=== PATIENT | female | born 1955 | race African-American/Black ===

== ENCOUNTER 2020-12-16 17:04 | Inpatient (IN) | payer MEDICARE, MEDICAID ==
[~2020-12-16] VITALS: Ht 167.6 cm; Wt 93.4 kg
[2020-12-16 17:37] LABS: BASOPHILS % 0.7 % (0.0-2.0); EOSINOPHILS % 2.9 % (0.0-5.0); HEMATOCRIT. 34.5 % (36.0-48.0); HEMOGLOBIN. 11.5 g/dL (12.0-16.0); LYMPHOCYTES % 14.2 % (20.0-50.0); MEAN CORPUSCULAR HEMOGLOBIN 26.5 pg (28.0-32.0); MEAN CORPUSCULAR VOLUME 79.8 fL (81.0-99.0); MEAN PLATELET VOLUME 6.8 fl (7.4-10.4); MONOCYTES % 8.2 % (2.0-8.0); PLATELET 543 x1000/uL (130-400); RED BLOOD CELL COUNT 4.32 mill/uL (4.2-5.4); RED CELL DISTRIBUTION WIDTH 14.1 % (11.6-14.6)
[2020-12-16 17:44] LABS: CHLORIDE 104 mEq/L (98-107)
[2020-12-16 17:48] LABS: ETHANOL BLOOD < 10 mg/dL; PROTHROMBIN TIME 10.4 sec (9.6-11.0)
[2020-12-16 17:50] LABS: LDL CHOLESTEROL 80 mg/dL (5-100)
[2020-12-16] MEDS ORDERED: LEVETIRACETAM 500MG PREMIX 100 ML IV ONE (18:00)
[2020-12-16 18:09] LABS: CLARITY URINE CLEAR (CLEAR); COLOR URINE YELLOW (YELLOW); KETONES URINE NEGATIVE (NEGATIVE); LEUKOCYTE ESTERASE URINE 1+ (NEGATIVE); NITRITE URINE NEGATIVE (NEGATIVE); OCCULT BLOOD URINE TRACE (NEGATIVE); PH URINE 5.5 (4.5-8.0); PROTEIN URINE NEGATIVE (NEGATIVE); SPECIFIC GRAVITY URINE 1.045 (1.005-1.030); UROBILINOGEN URINE 0.2 E.U./dL (0.2-1.0)
[2020-12-16 18:27] LABS: METHADONE URINE SCREEN NEGATIVE (NEGATIVE); OPIATES URINE SCREEN NEGATIVE (NEGATIVE)
[2020-12-16 18:28] LABS: *BARBITURATES SCREEN URINE NEGATIVE (NEGATIVE); *COCAINE SCREEN URINE NEGATIVE (NEGATIVE); CANNABINOID URINE SCREEN NEGATIVE (NEGATIVE); PHENCYCLIDINE URINE SCREEN NEGATIVE (NEGATIVE)
[2020-12-16 18:30] LABS: *AMPHETAMINES SCREEN URINE NEGATIVE (NEGATIVE); *BENZODIAZEPINES SCREEN URINE NEGATIVE (NEGATIVE)
[2020-12-16] MEDS ORDERED: IOHEXOL 350 MG/ML 200ML INFUS..BTL IV ONE (18:41)
[2020-12-16] MEDS ORDERED: DEXT 5%/LACTATED RINGERS 1,000 ML IV SCH (19:45)
[2020-12-16] MEDS ORDERED: DEXTROSE 50% WATER 50ML SYRINGE IV PRN (19:45)
[2020-12-16] MEDS ORDERED: MAGNESIUM/ALUMINUM HYDROXIDE/SIMETHICONE 30ML UDC PO PRN (19:45)
[2020-12-16] MEDS ORDERED: NITROGLYCERIN 0.4MG TABLET SL SL PRN (19:45)
[2020-12-16] MEDS ORDERED: NICARDIPINE 50 MG in SODIUM CHLORIDE 0.9% 230 ML IV PRN (19:45)
[2020-12-16] MEDS ORDERED: SODIUM CHLORIDE 0.9% 1000ML BAG (SEPSIS BOLUS) IV ONE (19:45)
[2020-12-16] MEDS ORDERED: IPRATROPIUM/ALBUTEROL 0.5-3(2.5)MG/3ML NEB NEB PRN (19:45)
[2020-12-16] MEDS ORDERED: MORPHINE SULFATE 2 MG/ML CPJ (NOT FOR IM USE) IV PRN (20:00)
[2020-12-16] MEDS ORDERED: NICARDIPINE 100 MG in SODIUM CHLORIDE 0.9% 60 ML IV PRN (20:00)
[2020-12-16] MEDS ORDERED: CEFTRIAXONE 1 G PREMIX 50 ML IV SCH (20:00)
[2020-12-16] MEDS ORDERED: LEVETIRACETAM 500MG PREMIX 100 ML IV SCH (20:00)
[2020-12-16 20:17] LABS: FOLIC ACID (FOLATE) SERUM >20 ng/mL ng/mL (>5.38)
[2020-12-16 20:27] LABS: VITAMIN B12 SERUM 1361 pg/mL (211-911)
[2020-12-16] MEDS: BLOOD SUGAR DIAGNOSTIC STRIP TEST SCH (22:35)
[2020-12-16] MEDS: INSULIN LISPRO 100 UNITS/ML SUBCUT SCH (23:52)
[2020-12-17] VITALS (66 sets, daily range): BP systolic 97–146; BP diastolic 48–108
[2020-12-17 00:10] LABS: CREATINE KINASE 121 IU/L (26-192)
[2020-12-17 00:11] LABS: CREATINE KINASE MB FRACTION < 1.0 ng/mL (0.5-3.6)
[2020-12-17] MEDS: NICARDIPINE 100 MG in SODIUM CHLORIDE 0.9% 60 ML IV PRN ×2 (01:02→17:30)
[2020-12-17] MEDS ORDERED: ATOR20TA65 PO (04:59)
[2020-12-17] MEDS ORDERED: AMLO5TAB88 PO (04:59)
[2020-12-17] MEDS ORDERED: ACET325T52 PO (04:59)
[2020-12-17] MEDS ORDERED: LEVE10006 PO (04:59)
[2020-12-17] MEDS ORDERED: METF-415 PO (04:59)
[2020-12-17] MEDS ORDERED: TRAZ-251 PO (04:59)
[2020-12-17] MEDS ORDERED: ESCI5TAB16 PO (04:59)
[2020-12-17] MEDS ORDERED: BLOO-1113 XX (04:59)
[2020-12-17] MEDS: DEXT 5%/LACTATED RINGERS 1,000 ML IV SCH ×2 (05:34→17:10)
[2020-12-17] MEDS ORDERED: THROMBIN (BOVINE) 5000 UNITS/VIAL TOP ONE (06:48)
[2020-12-17] MEDS ORDERED: BACITRACIN 15GM TUBE TOP ONE (06:48)
[2020-12-17] MEDS ORDERED: BACITRACIN 50,000 UNITS/VIAL ONE (06:49)
[2020-12-17] MEDS: BLOOD SUGAR DIAGNOSTIC STRIP TEST SCH ×5 (07:30→21:00)
[2020-12-17] MEDS ORDERED: NEOSTIGMINE METHYLSULFATE 1MG/ML 10 ML VIAL ONE (07:44)
[2020-12-17] MEDS ORDERED: FENTANYL CITRATE/PF 50MCG/ML 2ML VIAL ONE (07:44)
[2020-12-17] MEDS ORDERED: ROCURONIUM BROMIDE 10MG/ML VIAL 5ML IV ONE (07:44)
[2020-12-17] MEDS ORDERED: GLYCOPYRROLATE 0.2 MG/ML 2ML VIAL ONE ×2 (07:45→09:42)
[2020-12-17] MEDS ORDERED: MIDAZOLAM HCL 2 MG/2 ML VIAL ONE (07:45)
[2020-12-17] MEDS ORDERED: PROPOFOL 200MG/20ML VIAL IV ONE (07:45)
[2020-12-17] MEDS: INSULIN LISPRO 100 UNITS/ML SUBCUT SCH ×4 (08:00→21:59)
[2020-12-17] MEDS ORDERED: HYDROMORPHONE HCL/PF 2MG/ML CPJ IV PRN (08:30)
[2020-12-17] MEDS ORDERED: LABETALOL 5MG/ML SYR 20 MG/4 ML SYRINGE IV PRN (08:30)
[2020-12-17] MEDS ORDERED: ONDANSETRON HCL 4MG/2ML INJ IV PRN (08:30)
[2020-12-17] MEDS ORDERED: MEPERIDINE HCL/PF 25MG/ML CPJ IV PRN (08:30)
[2020-12-17] MEDS ORDERED: LEVETIRACETAM 500MG PREMIX 100 ML IV SCH (09:00)
[2020-12-17] MEDS ORDERED: DEXAMETHASONE 4MG/ML 1ML VIAL ONE (09:15)
[2020-12-17] MEDS ORDERED: BALANCED SALT IRRIG SOLN 15ML ONE (09:38)
[2020-12-17] MEDS: PANTOPRAZOLE SODIUM 40 MG/VIAL IV SCH (10:21)
[2020-12-17] MEDS ORDERED: PHENYTOIN SODIUM 500 MG in SODIUM CHLORIDE 0.9% 50 ML IV SCH (11:00)
[2020-12-17] MEDS: ONDANSETRON HCL 4MG/2ML INJ IV PRN (11:09)
[2020-12-17] MEDS: MORPHINE SULFATE 2 MG/ML CPJ (NOT FOR IM USE) IV PRN (11:50)
[2020-12-17] MEDS: PHENYTOIN SODIUM 100MG/2ML VIAL IV SCH (12:12)
[2020-12-17] MEDS: CEFAZOLIN 1000MG PREMIX 50 ML IV SCH ×2 (13:37→23:13)
[2020-12-17] MEDS ORDERED: CEFAZOLIN SODIUM 1000MG/VIAL IV SCH (14:00)
[2020-12-17 16:40] LABS: CHLORIDE 105 mEq/L (98-107); HEMATOCRIT. 32.1 % (36.0-48.0); HEMOGLOBIN. 10.6 g/dL (12.0-16.0); MEAN CORPUSCULAR HEMOGLOBIN 26.2 pg (28.0-32.0); MEAN CORPUSCULAR VOLUME 79.4 fL (81.0-99.0); MEAN PLATELET VOLUME 6.7 fl (7.4-10.4); PLATELET 557 x1000/uL (130-400); RED BLOOD CELL COUNT 4.04 mill/uL (4.2-5.4); RED CELL DISTRIBUTION WIDTH 13.8 % (11.6-14.6)
[2020-12-17 16:46] LABS: PHOSPHORUS 3.5 mg/dL (2.5-4.9)
[2020-12-17 16:49] LABS: CREATINE KINASE 56 IU/L (26-192)
[2020-12-17 16:51] LABS: CREATINE KINASE MB FRACTION 1.3 ng/mL (0.5-3.6)
[2020-12-17 17:15] LABS: PLATELET ESTIMATE INCREASED
[2020-12-17] MEDS ORDERED: DEXAMETHASONE 10 MG/ML VIAL IV NR (19:15)
[2020-12-17] MEDS: CEFTRIAXONE 1,000 MG in DEXTROSE 5% WATER 50 ML IV SCH (21:47)
[2020-12-17] MEDS: LEVETIRACETAM 500MG PREMIX 100 ML IV SCH (22:22)
[2020-12-18] VITALS (99 sets, daily range): BP systolic 106–167; BP diastolic 39–105
[2020-12-18] MEDS: PHENYTOIN SODIUM 100MG/2ML VIAL IV SCH ×4 (00:05→22:42)
[2020-12-18] MEDS: DEXAMETHASONE 4MG/ML 1ML VIAL IV SCH ×3 (00:22→11:01)
[2020-12-18] MEDS: NICARDIPINE 100 MG in SODIUM CHLORIDE 0.9% 60 ML IV PRN ×3 (03:40→18:39)
[2020-12-18] MEDS ORDERED: PHENYTOIN SODIUM 300 MG in SODIUM CHLORIDE 0.9% 50 ML IV ONE (04:30)
[2020-12-18] MEDS: DEXT 5%/LACTATED RINGERS 1,000 ML IV SCH (04:40)
[2020-12-18] MEDS ORDERED: PHENYTOIN SODIUM 100MG/2ML VIAL IV SCH (04:45)
[2020-12-18] MEDS: CEFAZOLIN 1000MG PREMIX 50 ML IV SCH ×2 (05:34→14:11)
[2020-12-18 05:46] LABS: HEMATOCRIT. 32.2 % (36.0-48.0); HEMOGLOBIN. 10.5 g/dL (12.0-16.0); MEAN CORPUSCULAR HEMOGLOBIN 26.1 pg (28.0-32.0); MEAN CORPUSCULAR VOLUME 79.7 fL (81.0-99.0); MEAN PLATELET VOLUME 7.4 fl (7.4-10.4); PLATELET 656 x1000/uL (130-400); RED BLOOD CELL COUNT 4.03 mill/uL (4.2-5.4); RED CELL DISTRIBUTION WIDTH 14.2 % (11.6-14.6)
[2020-12-18] MEDS: BLOOD SUGAR DIAGNOSTIC STRIP TEST SCH ×4 (05:55→21:00)
[2020-12-18] MEDS: INSULIN LISPRO 100 UNITS/ML SUBCUT SCH ×6 (06:01→22:00)
[2020-12-18] MEDS: SODIUM CHLORIDE 0.9% 1,000 ML IV SCH (07:23)
[2020-12-18] MEDS: PANTOPRAZOLE SODIUM 40 MG/VIAL IV SCH (08:00)
[2020-12-18] MEDS: ONDANSETRON HCL 4MG/2ML INJ IV PRN ×2 (08:00→19:02)
[2020-12-18] MEDS: LEVETIRACETAM 500MG PREMIX 100 ML IV SCH (08:06)
[2020-12-18 09:30] LABS: PLATELET ESTIMATE INCREASED
[2020-12-18 10:04] LABS: CHLORIDE 103 mEq/L (98-107)
[2020-12-18] MEDS: INSULIN GLARGINE UD 100 UNITS/ML SYR SUBCUT SCH (10:51)
[2020-12-18] MEDS ORDERED: LIDOCAINE HCL 1% 20ML VIAL (Pyxis) INJ ONE (11:11)
[2020-12-18 11:47] LABS: BG BASE EXCESS -2.7 mmol/L (-2.0-2.0); BG CARBOXYHEMOGLOBIN 0.3 % (0.5-1.5); BG DEOXYHEMOGLOBIN 5.3 % (0.0-5.0); BG FRACTION INSPIRED OXYGEN 32; BG METHEMOGLOBIN 0.3 % (0.0-1.5); BG OXYGEN SATURATION 94.7 % (92.0-98.5); BG OXYHEMOGLOBIN 94.1 % (94.0-97.0); BG PH 7.552 (7.350-7.450); BG PO2 69.9 mmHg (75.0-100.0); BG SAMPLE SITE RIGHT RADIAL; BG TOTAL HEMOGLOBIN 11.1 g/dL (12.0-18.0); BG VENT MODE NASAL CANNULA
[2020-12-18] MEDS ORDERED: POTASSIUM CHLORIDE INJ 40 MEQ in DEXT 5% WATER 250 ML IV SCH (13:00)
[2020-12-18] MEDS: CEFTRIAXONE 1,000 MG in DEXTROSE 5% WATER 50 ML IV SCH (20:21)
[2020-12-18] MEDS ORDERED: LEVETIRACETAM 1,000 MG in SODIUM CHLORIDE 0.9% 100 ML IV SCH (20:45)
[2020-12-18] MEDS: LEVETIRACETAM 1000MG PREMIX 100 ML IV SCH (21:57)
[2020-12-18] MEDS: MORPHINE SULFATE 2 MG/ML CPJ (NOT FOR IM USE) IV PRN (23:00)
[2020-12-19] VITALS (101 sets, daily range): BP systolic 61–154; BP diastolic 19–93
[2020-12-19] MEDS: ONDANSETRON HCL 4MG/2ML INJ IV PRN (00:23)
[2020-12-19] MEDS: INSULIN LISPRO 100 UNITS/ML SUBCUT SCH ×9 (00:27→23:24)
[2020-12-19] MEDS: SODIUM CHLORIDE 0.9% 1,000 ML IV SCH ×3 (01:46→23:45)
[2020-12-19] MEDS ORDERED: PHENYTOIN SODIUM 500 MG in SODIUM CHLORIDE 0.9% 50 ML IV NR (02:00)
[2020-12-19] MEDS: NICARDIPINE 100 MG in SODIUM CHLORIDE 0.9% 60 ML IV PRN ×2 (02:49→08:31)
[2020-12-19] MEDS: BLOOD SUGAR DIAGNOSTIC STRIP TEST SCH ×4 (06:11→23:23)
[2020-12-19] MEDS: PHENYTOIN SODIUM 100MG/2ML VIAL IV SCH ×3 (06:12→21:22)
[2020-12-19 08:30] LABS: HEMOGLOBIN. 9.4 g/dL (12.0-16.0); MEAN CORPUSCULAR VOLUME 80.1 fL (81.0-99.0); MEAN PLATELET VOLUME 7.5 fl (7.4-10.4); PLATELET 601 x1000/uL (130-400); RED BLOOD CELL COUNT 3.61 mill/uL (4.2-5.4); RED CELL DISTRIBUTION WIDTH 14.3 % (11.6-14.6)
[2020-12-19] MEDS: LEVETIRACETAM 1000MG PREMIX 100 ML IV SCH (08:31)
[2020-12-19] MEDS: PANTOPRAZOLE SODIUM 40 MG/VIAL IV SCH (08:31)
[2020-12-19] MEDS: INSULIN GLARGINE UD 100 UNITS/ML SYR SUBCUT SCH (10:25)
[2020-12-19] MEDS: MORPHINE SULFATE 4 MG/ML CPJ (NOT FOR IM USE) IV PRN ×2 (10:55→21:22)
[2020-12-19 14:04] LABS: PLATELET ESTIMATE INCREASED
[2020-12-19] MEDS ORDERED: PHENYTOIN SODIUM 100MG/2ML VIAL IV NR (17:15)
[2020-12-19] MEDS: LEVETIRACETAM 1,500 MG in SODIUM CHLORIDE 0.9% 100 ML IV SCH ×2 (19:25→21:22)
[2020-12-19] MEDS ORDERED: LEVETIRACETAM 1000MG PREMIX 100 ML IV SCH (21:00)
[2020-12-19] MEDS: CEFTRIAXONE 1,000 MG in DEXTROSE 5% WATER 50 ML IV SCH (21:22)
[2020-12-20] VITALS (104 sets, daily range): BP systolic 86–156; BP diastolic 44–112
[2020-12-20 04:35] LABS: CHLORIDE 114 mEq/L (98-107)
[2020-12-20 04:38] LABS: HEMATOCRIT. 23.8 % (36.0-48.0); HEMOGLOBIN. 7.8 g/dL (12.0-16.0); MEAN CORPUSCULAR VOLUME 78.8 fL (81.0-99.0); MEAN PLATELET VOLUME 6.9 fl (7.4-10.4); PLATELET 423 x1000/uL (130-400); RED BLOOD CELL COUNT 3.02 mill/uL (4.2-5.4); RED CELL DISTRIBUTION WIDTH 14.4 % (11.6-14.6)
[2020-12-20] MEDS: BLOOD SUGAR DIAGNOSTIC STRIP TEST SCH ×4 (05:47→23:10)
[2020-12-20] MEDS: INSULIN LISPRO 100 UNITS/ML SUBCUT SCH ×5 (05:48→23:10)
[2020-12-20] MEDS: PHENYTOIN SODIUM 100MG/2ML VIAL IV SCH ×3 (05:51→21:00)
[2020-12-20] MEDS: LEVETIRACETAM 1,500 MG in SODIUM CHLORIDE 0.9% 100 ML IV SCH ×2 (08:11→21:00)
[2020-12-20] MEDS: SODIUM CHLORIDE 0.9% 1,000 ML IV SCH ×2 (08:11→21:52)
[2020-12-20] MEDS: PANTOPRAZOLE SODIUM 40 MG/VIAL IV SCH (08:11)
[2020-12-20] MEDS ORDERED: PHENYTOIN SODIUM 100MG/2ML VIAL IV NR (08:30)
[2020-12-20] MEDS ORDERED: KCL 20MEQ/100ML PREMIX 100 ML IV ONE (08:45)
[2020-12-20] MEDS ORDERED: POTASSIUM CHLORIDE INJ 40 MEQ in DEXT 5% WATER 250 ML IV ONE (09:00)
[2020-12-20] MEDS ORDERED: POTASSIUM CHLORIDE INJ 60 MEQ in DEXT 5% WATER 500 ML IV ONE (09:00)
[2020-12-20 09:39] LABS: PLATELET ESTIMATE INCREASED
[2020-12-20] MEDS ORDERED: ETOMIDATE 2MG/ML 10ML VIAL IV ONE (10:00)
[2020-12-20] MEDS ORDERED: SUCCINYLCHOLINE CHLORIDE 200MG/10ML IV ONE (10:00)
[2020-12-20] MEDS: PROPOFOL 10MG/ML 100ML 100 ML IV PRN ×4 (10:58→21:54)
[2020-12-20] MEDS ORDERED: METRONIDAZOLE 500MG TABLET PO SCH (11:00)
[2020-12-20 12:27] LABS: BG BASE EXCESS -2.5 mmol/L (-2.0-2.0); BG CARBOXYHEMOGLOBIN 0.3 % (0.5-1.5); BG DEOXYHEMOGLOBIN 0.7 % (0.0-5.0); BG FRACTION INSPIRED OXYGEN 60; BG HCO3 ACT 20.3 mmol/L (22.0-26.0); BG METHEMOGLOBIN 0.3 % (0.0-1.5); BG OXYGEN SATURATION 99.3 % (92.0-98.5); BG OXYHEMOGLOBIN 98.7 % (94.0-97.0); BG PCO2 27.5 mmHg (35.0-45.0); BG PH 7.487 (7.350-7.450); BG PO2 298.8 mmHg (75.0-100.0); BG SAMPLE SITE RIGHT RADIAL; BG TOTAL HEMOGLOBIN 8.1 g/dL (12.0-18.0); BG TOTAL RESPIRATORY RATE 18 b/min; BG VENT MODE VENT - AC
[2020-12-20] MEDS: METRONIDAZOLE 500MG TABLET PO SCH (21:00)
[2020-12-20] MEDS: CEFTRIAXONE 1,000 MG in DEXTROSE 5% WATER 50 ML IV SCH (21:00)
[2020-12-20] MEDS: IPRATROPIUM/ALBUTEROL 0.5-3(2.5)MG/3ML NEB HHN SCH (21:34)
[2020-12-21] VITALS (96 sets, daily range): BP systolic 95–150; BP diastolic 53–117
[2020-12-21] MEDS: PROPOFOL 10MG/ML 100ML 100 ML IV PRN ×6 (02:00→23:52)
[2020-12-21] MEDS: IPRATROPIUM/ALBUTEROL 0.5-3(2.5)MG/3ML NEB HHN SCH ×4 (03:36→20:15)
[2020-12-21 05:26] LABS: EOSINOPHILS % 0.6 % (0.0-5.0); HEMATOCRIT. 24.2 % (36.0-48.0); HEMOGLOBIN. 7.9 g/dL (12.0-16.0); LYMPHOCYTES % 9.2 % (20.0-50.0); MEAN CORPUSCULAR HEMOGLOBIN 25.8 pg (28.0-32.0); MEAN PLATELET VOLUME 6.8 fl (7.4-10.4); MONOCYTES % 10.1 % (2.0-8.0); NEUTROPHILS % 80.1 % (40.0-76.0); PLATELET 410 x1000/uL (130-400); RED BLOOD CELL COUNT 3.06 mill/uL (4.2-5.4); RED CELL DISTRIBUTION WIDTH 14.3 % (11.6-14.6)
[2020-12-21] MEDS: PHENYTOIN SODIUM 100MG/2ML VIAL IV SCH ×3 (05:27→21:44)
[2020-12-21] MEDS: BLOOD SUGAR DIAGNOSTIC STRIP TEST SCH ×4 (05:28→23:51)
[2020-12-21] MEDS: METRONIDAZOLE 500MG TABLET PO SCH ×3 (05:28→21:45)
[2020-12-21] MEDS: INSULIN LISPRO 100 UNITS/ML SUBCUT SCH ×4 (05:29→23:51)
[2020-12-21 05:33] LABS: CHLORIDE 111 mEq/L (98-107)
[2020-12-21] MEDS: SODIUM CHLORIDE 0.9% 1,000 ML IV SCH ×3 (06:09→23:59)
[2020-12-21] MEDS: PANTOPRAZOLE SODIUM 40 MG/VIAL IV SCH (09:26)
[2020-12-21] MEDS: DOCUSATE SODIUM 100MG CAPSULE PO PRN ×2 (09:26→14:12)
[2020-12-21] MEDS: LEVETIRACETAM 1,500 MG in SODIUM CHLORIDE 0.9% 100 ML IV SCH ×2 (09:26→22:09)
[2020-12-21] MEDS: NICARDIPINE 100 MG in SODIUM CHLORIDE 0.9% 60 ML IV PRN ×2 (12:00→17:45)
[2020-12-21] MEDS: DOCUSATE SODIUM SUGAR FREE 100MG/10ML UDC NG SCH (17:44)
[2020-12-21] MEDS: CEFTRIAXONE 1,000 MG in DEXTROSE 5% WATER 50 ML IV SCH (21:13)
[2020-12-22] VITALS (105 sets, daily range): BP systolic 102–167; BP diastolic 42–107
[2020-12-22] MEDS: IPRATROPIUM/ALBUTEROL 0.5-3(2.5)MG/3ML NEB HHN SCH ×4 (02:37→20:42)
[2020-12-22] MEDS: PROPOFOL 10MG/ML 100ML 100 ML IV PRN ×2 (04:12→08:44)
[2020-12-22 05:39] LABS: HEMATOCRIT. 27.4 % (36.0-48.0); HEMOGLOBIN. 8.9 g/dL (12.0-16.0); MEAN CORPUSCULAR HEMOGLOBIN 25.9 pg (28.0-32.0); MEAN CORPUSCULAR VOLUME 79.6 fL (81.0-99.0); RED BLOOD CELL COUNT 3.44 mill/uL (4.2-5.4)
[2020-12-22] MEDS: BLOOD SUGAR DIAGNOSTIC STRIP TEST SCH ×3 (05:44→17:37)
[2020-12-22] MEDS: METRONIDAZOLE 500MG TABLET PO SCH ×3 (05:54→22:07)
[2020-12-22] MEDS: PHENYTOIN SODIUM 100MG/2ML VIAL IV SCH ×3 (05:54→22:04)
[2020-12-22] MEDS: INSULIN LISPRO 100 UNITS/ML SUBCUT SCH ×3 (05:55→17:37)
[2020-12-22 05:57] LABS: CHLORIDE 105 mEq/L (98-107)
[2020-12-22 07:53] LABS: BG BASE EXCESS 2.3 mmol/L (-2.0-2.0); BG CARBOXYHEMOGLOBIN 0.3 % (0.5-1.5); BG DEOXYHEMOGLOBIN 1.6 % (0.0-5.0); BG HCO3 ACT 25.8 mmol/L (22.0-26.0); BG OXYGEN SATURATION 98.4 % (92.0-98.5); BG OXYHEMOGLOBIN 98.1 % (94.0-97.0); BG PCO2 34.9 mmHg (35.0-45.0); BG PH 7.486 (7.350-7.450); BG SAMPLE SITE RIGHT RADIAL; BG TOTAL HEMOGLOBIN 8.2 g/dL (12.0-18.0); BG VENT MODE VENT - AC
[2020-12-22] MEDS: DOCUSATE SODIUM SUGAR FREE 100MG/10ML UDC NG SCH (08:44)
[2020-12-22] MEDS: PANTOPRAZOLE SODIUM 40 MG/VIAL IV SCH (08:45)
[2020-12-22] MEDS: LEVETIRACETAM 1,500 MG in SODIUM CHLORIDE 0.9% 100 ML IV SCH ×2 (09:40→22:04)
[2020-12-22 12:34] LABS: PLATELET 342 x1000/uL (130-400)
[2020-12-22 12:38] LABS: PLATELET ESTIMATE NORMAL
[2020-12-22] MEDS: SODIUM CHLORIDE 0.9% 1,000 ML IV SCH (14:08)
[2020-12-22] MEDS: NICARDIPINE 100 MG in SODIUM CHLORIDE 0.9% 60 ML IV PRN (16:09)
[2020-12-22] MEDS: ACETAMINOPHEN 325MG TABLET PO PRN ×2 (16:19→22:30)
[2020-12-22] MEDS: MORPHINE SULFATE 4 MG/ML CPJ (NOT FOR IM USE) IV PRN (20:18)
[2020-12-23] VITALS (98 sets, daily range): BP systolic 95–159; BP diastolic 32–89
[2020-12-23] MEDS: NICARDIPINE 100 MG in SODIUM CHLORIDE 0.9% 60 ML IV PRN ×3 (00:02→13:20)
[2020-12-23] MEDS: INSULIN LISPRO 100 UNITS/ML SUBCUT SCH ×4 (00:32→17:44)
[2020-12-23] MEDS: IPRATROPIUM/ALBUTEROL 0.5-3(2.5)MG/3ML NEB HHN SCH ×4 (02:06→20:14)
[2020-12-23] MEDS: SODIUM CHLORIDE 0.9% 1,000 ML IV SCH ×2 (04:13→17:42)
[2020-12-23] MEDS: MORPHINE SULFATE 4 MG/ML CPJ (NOT FOR IM USE) IV PRN ×3 (04:13→17:43)
[2020-12-23 05:56] LABS: HEMATOCRIT. 26.3 % (36.0-48.0); HEMOGLOBIN. 8.6 g/dL (12.0-16.0); MEAN CORPUSCULAR HEMOGLOBIN 25.8 pg (28.0-32.0); MEAN CORPUSCULAR VOLUME 78.9 fL (81.0-99.0); PLATELET 367 x1000/uL (130-400); RED BLOOD CELL COUNT 3.33 mill/uL (4.2-5.4); RED CELL DISTRIBUTION WIDTH 14.1 % (11.6-14.6)
[2020-12-23] MEDS: BLOOD SUGAR DIAGNOSTIC STRIP TEST SCH ×4 (06:00→18:35)
[2020-12-23 06:57] LABS: CHLORIDE 105 mEq/L (98-107)
[2020-12-23] MEDS: PHENYTOIN SODIUM 100MG/2ML VIAL IV SCH ×3 (06:59→22:44)
[2020-12-23] MEDS: METRONIDAZOLE 500MG TABLET PO SCH ×3 (07:00→22:46)
[2020-12-23 08:08] LABS: BG BASE EXCESS 0.9 mmol/L (-2.0-2.0); BG CARBOXYHEMOGLOBIN 0.3 % (0.5-1.5); BG DEOXYHEMOGLOBIN 2.6 % (0.0-5.0); BG HCO3 ACT 24.5 mmol/L (22.0-26.0); BG METHEMOGLOBIN 0.5 % (0.0-1.5); BG OXYGEN SATURATION 97.4 % (92.0-98.5); BG OXYHEMOGLOBIN 96.6 % (94.0-97.0); BG PCO2 34.8 mmHg (35.0-45.0); BG PH 7.465 (7.350-7.450); BG PO2 99.2 mmHg (75.0-100.0); BG SAMPLE SITE RIGHT RADIAL; BG TOTAL HEMOGLOBIN 9.1 g/dL (12.0-18.0); BG VENT MODE VENT - AC
[2020-12-23] MEDS: METOPROLOL TARTRATE 25MG TABLET PO SCH ×2 (08:41→22:44)
[2020-12-23] MEDS: DOCUSATE SODIUM SUGAR FREE 100MG/10ML UDC NG SCH (08:42)
[2020-12-23] MEDS: PANTOPRAZOLE SODIUM 40 MG/VIAL IV SCH (08:42)
[2020-12-23] MEDS: AMLODIPINE 10MG TABLET PO SCH (08:42)
[2020-12-23] MEDS: LEVETIRACETAM 1,500 MG in SODIUM CHLORIDE 0.9% 100 ML IV SCH ×2 (08:43→22:44)
[2020-12-23] MEDS ORDERED: POTASSIUM CHLORIDE 20MEQ/PACKET PO SCH (09:00)
[2020-12-23] MEDS: ONDANSETRON HCL 4MG/2ML INJ IV PRN (09:47)
[2020-12-23] MEDS: NITROGLYCERIN OINT 1GM/INCH UDPKT TD SCH ×3 (09:48→22:44)
[2020-12-23] MEDS: CLONIDINE HCL 0.3MG/24HR PATCH TD SCH (11:34)
[2020-12-23 11:35] LABS: NUCLEATED RED BLOOD CELLS 1 /100 WBC
[2020-12-23 11:36] LABS: PLATELET ESTIMATE NORMAL
[2020-12-23] MEDS ORDERED: DEXTROSE 50% WATER 50ML SYRINGE IV PRN (17:15)
[2020-12-24] VITALS (99 sets, daily range): BP systolic 115–170; BP diastolic 45–105
[2020-12-24] MEDS: IPRATROPIUM/ALBUTEROL 0.5-3(2.5)MG/3ML NEB HHN SCH ×4 (00:28→20:55)
[2020-12-24] MEDS: INSULIN LISPRO 100 UNITS/ML SUBCUT SCH ×4 (01:02→17:22)
[2020-12-24] MEDS: MORPHINE SULFATE 4 MG/ML CPJ (NOT FOR IM USE) IV PRN ×2 (04:45→10:55)
[2020-12-24] MEDS: ACETAMINOPHEN 325MG TABLET PO PRN (05:02)
[2020-12-24] MEDS: PHENYTOIN SODIUM 100MG/2ML VIAL IV SCH ×3 (05:02→21:40)
[2020-12-24] MEDS: NITROGLYCERIN OINT 1GM/INCH UDPKT TD SCH ×3 (05:03→21:43)
[2020-12-24] MEDS: METRONIDAZOLE 500MG TABLET PO SCH ×3 (05:04→21:47)
[2020-12-24] MEDS: BLOOD SUGAR DIAGNOSTIC STRIP TEST SCH ×4 (05:48→17:20)
[2020-12-24 05:54] LABS: HEMATOCRIT. 23.2 % (36.0-48.0); HEMOGLOBIN. 7.6 g/dL (12.0-16.0); MEAN CORPUSCULAR HEMOGLOBIN 25.9 pg (28.0-32.0); MEAN CORPUSCULAR VOLUME 78.6 fL (81.0-99.0); MEAN PLATELET VOLUME 6.9 fl (7.4-10.4); PLATELET 371 x1000/uL (130-400); RED BLOOD CELL COUNT 2.95 mill/uL (4.2-5.4); RED CELL DISTRIBUTION WIDTH 14.1 % (11.6-14.6)
[2020-12-24 06:11] LABS: CHLORIDE 106 mEq/L (98-107)
[2020-12-24] MEDS: SODIUM CHLORIDE 0.9% 1,000 ML IV SCH ×2 (06:21→21:34)
[2020-12-24] MEDS: DOCUSATE SODIUM SUGAR FREE 100MG/10ML UDC NG SCH (08:27)
[2020-12-24] MEDS: LEVETIRACETAM 1,500 MG in SODIUM CHLORIDE 0.9% 100 ML IV SCH (08:27)
[2020-12-24] MEDS: AMLODIPINE 10MG TABLET PO SCH (08:27)
[2020-12-24] MEDS: PANTOPRAZOLE SODIUM 40 MG/VIAL IV SCH (08:28)
[2020-12-24] MEDS: METOPROLOL TARTRATE 25MG TABLET PO SCH ×2 (08:28→21:41)
[2020-12-24 08:33] LABS: BG BASE EXCESS 3.1 mmol/L (-2.0-2.0); BG CARBOXYHEMOGLOBIN 0.3 % (0.5-1.5); BG DEOXYHEMOGLOBIN 1.4 % (0.0-5.0); BG FRACTION INSPIRED OXYGEN 30; BG HCO3 ACT 26.5 mmol/L (22.0-26.0); BG METHEMOGLOBIN 0.5 % (0.0-1.5); BG OXYGEN SATURATION 98.6 % (92.0-98.5); BG OXYHEMOGLOBIN 97.8 % (94.0-97.0); BG PCO2 35.3 mmHg (35.0-45.0); BG PH 7.494 (7.350-7.450); BG PO2 136.7 mmHg (75.0-100.0); BG SAMPLE SITE RIGHT RADIAL; BG TOTAL HEMOGLOBIN 7.4 g/dL (12.0-18.0); BG VENT MODE VENT - SIMV
[2020-12-24 10:40] LABS: PLATELET ESTIMATE NORMAL
[2020-12-24] MEDS: INSULIN GLARGINE UD 100 UNITS/ML SYR SUBCUT SCH (10:58)
[2020-12-24] MEDS ORDERED: LACTULOSE 20G/30ML UDC PO PRN (16:30)
[2020-12-24] MEDS: LEVETIRACETAM 2,000 MG in SODIUM CHLORIDE 0.9% 250 ML IV SCH (22:03)
[2020-12-25] VITALS (96 sets, daily range): BP systolic 97–152; BP diastolic 34–87
[2020-12-25] MEDS: BLOOD SUGAR DIAGNOSTIC STRIP TEST SCH ×4 (00:10→17:27)
[2020-12-25] MEDS: MORPHINE SULFATE 4 MG/ML CPJ (NOT FOR IM USE) IV PRN ×2 (00:25→02:55)
[2020-12-25] MEDS: IPRATROPIUM/ALBUTEROL 0.5-3(2.5)MG/3ML NEB HHN SCH ×3 (00:36→20:08)
[2020-12-25] MEDS: INSULIN LISPRO 100 UNITS/ML SUBCUT SCH ×4 (02:51→17:46)
[2020-12-25] MEDS: NICARDIPINE 100 MG in SODIUM CHLORIDE 0.9% 60 ML IV PRN ×2 (02:52→10:26)
[2020-12-25 05:16] LABS: CHLORIDE 107 mEq/L (98-107)
[2020-12-25 05:22] LABS: HEMATOCRIT. 23.1 % (36.0-48.0); HEMOGLOBIN. 7.5 g/dL (12.0-16.0); MEAN CORPUSCULAR HEMOGLOBIN 25.7 pg (28.0-32.0); MEAN CORPUSCULAR VOLUME 78.6 fL (81.0-99.0); MEAN PLATELET VOLUME 6.8 fl (7.4-10.4); PLATELET 406 x1000/uL (130-400); RED BLOOD CELL COUNT 2.93 mill/uL (4.2-5.4)
[2020-12-25] MEDS: PHENYTOIN SODIUM 100MG/2ML VIAL IV SCH ×3 (05:50→21:44)
[2020-12-25] MEDS: METRONIDAZOLE 500MG TABLET PO SCH ×3 (05:50→21:44)
[2020-12-25] MEDS: NITROGLYCERIN OINT 1GM/INCH UDPKT TD SCH ×3 (05:50→21:44)
[2020-12-25] MEDS: AMLODIPINE 10MG TABLET PO SCH (08:39)
[2020-12-25] MEDS: METOPROLOL TARTRATE 25MG TABLET PO SCH ×3 (08:39→21:46)
[2020-12-25] MEDS: DOCUSATE SODIUM SUGAR FREE 100MG/10ML UDC NG SCH (08:39)
[2020-12-25] MEDS: PANTOPRAZOLE SODIUM 40 MG/VIAL IV SCH (08:39)
[2020-12-25 10:08] LABS: PLATELET ESTIMATE NORMAL
[2020-12-25 10:15] LABS: BG BASE EXCESS 5.9 mmol/L (-2.0-2.0); BG CARBOXYHEMOGLOBIN 0.4 % (0.5-1.5); BG DEOXYHEMOGLOBIN 4.8 % (0.0-5.0); BG FRACTION INSPIRED OXYGEN 30; BG HCO3 ACT 29.5 mmol/L (22.0-26.0); BG METHEMOGLOBIN 0.4 % (0.0-1.5); BG OXYGEN SATURATION 95.2 % (92.0-98.5); BG OXYHEMOGLOBIN 94.4 % (94.0-97.0); BG PCO2 38.6 mmHg (35.0-45.0); BG PH 7.501 (7.350-7.450); BG PO2 74.3 mmHg (75.0-100.0); BG SAMPLE SITE RIGHT RADIAL; BG TOTAL HEMOGLOBIN 8.2 g/dL (12.0-18.0); BG VENT MODE VENT - CPAP
[2020-12-25] MEDS: LEVETIRACETAM 2,000 MG in SODIUM CHLORIDE 0.9% 250 ML IV SCH ×2 (10:24→22:53)
[2020-12-25] MEDS: SODIUM CHLORIDE 0.9% 1,000 ML IV SCH (10:26)
[2020-12-25] MEDS ORDERED: RACEPINEPHRINE 2.25% 0.5ML NEB VIAL HHN NR (11:30)
[2020-12-25] MEDS: INSULIN GLARGINE UD 100 UNITS/ML SYR SUBCUT SCH (12:40)
[2020-12-25] MEDS: ACETAMINOPHEN 325MG TABLET PO PRN (17:47)
[2020-12-26] VITALS (96 sets, daily range): BP systolic 97–168; BP diastolic 41–124
[2020-12-26] MEDS: BLOOD SUGAR DIAGNOSTIC STRIP TEST SCH ×4 (00:03→17:11)
[2020-12-26] MEDS: INSULIN LISPRO 100 UNITS/ML SUBCUT SCH ×4 (00:06→17:11)
[2020-12-26] MEDS: SODIUM CHLORIDE 0.9% 1,000 ML IV SCH ×2 (00:07→13:27)
[2020-12-26] MEDS: IPRATROPIUM/ALBUTEROL 0.5-3(2.5)MG/3ML NEB HHN SCH ×4 (02:05→20:00)
[2020-12-26 05:33] LABS: HEMATOCRIT. 23.1 % (36.0-48.0); MEAN CORPUSCULAR HEMOGLOBIN 27.7 pg (28.0-32.0); MEAN CORPUSCULAR VOLUME 79.7 fL (81.0-99.0); PLATELET 188 x1000/uL (130-400); RED CELL DISTRIBUTION WIDTH 14.2 % (11.6-14.6)
[2020-12-26 05:38] LABS: CHLORIDE 108 mEq/L (98-107)
[2020-12-26] MEDS: NITROGLYCERIN OINT 1GM/INCH UDPKT TD SCH ×3 (06:02→21:04)
[2020-12-26] MEDS: PHENYTOIN SODIUM 100MG/2ML VIAL IV SCH ×3 (06:02→21:03)
[2020-12-26 07:49] LABS: PLATELET ESTIMATE NORMAL
[2020-12-26] MEDS: DOCUSATE SODIUM SUGAR FREE 100MG/10ML UDC NG SCH (08:04)
[2020-12-26] MEDS: PANTOPRAZOLE SODIUM 40 MG/VIAL IV SCH (08:04)
[2020-12-26] MEDS: LEVETIRACETAM 2,000 MG in SODIUM CHLORIDE 0.9% 250 ML IV SCH ×2 (08:04→20:58)
[2020-12-26] MEDS: METOPROLOL TARTRATE 25MG TABLET PO SCH ×2 (08:05→21:04)
[2020-12-26] MEDS: AMLODIPINE 10MG TABLET PO SCH (08:05)
[2020-12-26] MEDS: INSULIN GLARGINE UD 100 UNITS/ML SYR SUBCUT SCH (09:34)
[2020-12-26] MEDS: NICARDIPINE 100 MG in SODIUM CHLORIDE 0.9% 60 ML IV PRN (11:05)
[2020-12-27] VITALS (87 sets, daily range): BP systolic 108–165; BP diastolic 45–104
[2020-12-27] MEDS: BLOOD SUGAR DIAGNOSTIC STRIP TEST SCH ×4 (00:38→18:26)
[2020-12-27] MEDS: INSULIN LISPRO 100 UNITS/ML SUBCUT SCH ×4 (00:40→18:26)
[2020-12-27] MEDS: IPRATROPIUM/ALBUTEROL 0.5-3(2.5)MG/3ML NEB HHN SCH ×4 (02:05→21:18)
[2020-12-27] MEDS: PHENYTOIN SODIUM 100MG/2ML VIAL IV SCH ×3 (05:38→21:33)
[2020-12-27] MEDS: NITROGLYCERIN OINT 1GM/INCH UDPKT TD SCH ×3 (05:38→21:33)
[2020-12-27] MEDS: NICARDIPINE 100 MG in SODIUM CHLORIDE 0.9% 60 ML IV PRN ×2 (05:39→21:32)
[2020-12-27] MEDS: SODIUM CHLORIDE 0.9% 1,000 ML IV SCH ×3 (05:40→23:38)
[2020-12-27] MEDS: MORPHINE SULFATE 4 MG/ML CPJ (NOT FOR IM USE) IV PRN (05:46)
[2020-12-27] MEDS ORDERED: DOCUSATE SODIUM SUGAR FREE 100MG/10ML UDC GT PRN (07:30)
[2020-12-27] MEDS: LEVETIRACETAM 2,000 MG in SODIUM CHLORIDE 0.9% 250 ML IV SCH ×2 (09:19→21:32)
[2020-12-27] MEDS: DOCUSATE SODIUM SUGAR FREE 100MG/10ML UDC NG SCH (09:20)
[2020-12-27] MEDS: INSULIN GLARGINE UD 100 UNITS/ML SYR SUBCUT SCH (09:20)
[2020-12-27] MEDS: AMLODIPINE 10MG TABLET PO SCH (09:20)
[2020-12-27] MEDS: PANTOPRAZOLE SODIUM 40 MG/VIAL IV SCH (09:21)
[2020-12-27] MEDS: METOPROLOL TARTRATE 25MG TABLET PO SCH ×2 (09:21→21:33)
[2020-12-27] MEDS: HYDRALAZINE HCL 25MG TABLET PO SCH ×2 (14:08→21:33)
[2020-12-28] VITALS (97 sets, daily range): BP systolic 105–151; BP diastolic 39–101
[2020-12-28] MEDS: INSULIN LISPRO 100 UNITS/ML SUBCUT SCH ×4 (00:55→17:20)
[2020-12-28] MEDS: IPRATROPIUM/ALBUTEROL 0.5-3(2.5)MG/3ML NEB HHN SCH ×4 (02:16→20:49)
[2020-12-28] MEDS: BLOOD SUGAR DIAGNOSTIC STRIP TEST SCH ×4 (06:00→17:16)
[2020-12-28] MEDS: HYDRALAZINE HCL 25MG TABLET PO SCH ×3 (06:14→23:13)
[2020-12-28] MEDS: PHENYTOIN SODIUM 100MG/2ML VIAL IV SCH ×3 (06:14→23:13)
[2020-12-28] MEDS: NITROGLYCERIN OINT 1GM/INCH UDPKT TD SCH ×3 (06:14→23:13)
[2020-12-28] MEDS: PANTOPRAZOLE SODIUM 40 MG/VIAL IV SCH (08:40)
[2020-12-28] MEDS: ACETAMINOPHEN 325MG TABLET PO PRN (08:40)
[2020-12-28] MEDS: METOPROLOL TARTRATE 25MG TABLET PO SCH ×2 (08:41→20:48)
[2020-12-28] MEDS: AMLODIPINE 10MG TABLET PO SCH (08:41)
[2020-12-28] MEDS: DOCUSATE SODIUM SUGAR FREE 100MG/10ML UDC NG SCH (08:41)
[2020-12-28] MEDS: NICARDIPINE 100 MG in SODIUM CHLORIDE 0.9% 60 ML IV PRN ×2 (08:49→20:47)
[2020-12-28] MEDS: LEVETIRACETAM 2,000 MG in SODIUM CHLORIDE 0.9% 250 ML IV SCH ×2 (09:12→20:42)
[2020-12-28 10:14] LABS: HEMATOCRIT 23.1 % (36.0-48.0); HEMOGLOBIN 7.6 g/dL (12.0-16.0); MEAN CORPUSCULAR HEMOGLOBIN 26.3 pg (28.0-32.0); MEAN CORPUSCULAR VOLUME 79.9 fL (81.0-99.0); PLATELET 423 x1000/uL (130-400); RED BLOOD CELL COUNT 2.89 mill/uL (4.2-5.4); RED CELL DISTRIBUTION WIDTH 14.7 % (11.6-14.6)
[2020-12-28 10:26] LABS: CHLORIDE 109 mEq/L (98-107)
[2020-12-28] MEDS: MINOXIDIL 2.5MG TABLET PO SCH ×2 (10:27→20:48)
[2020-12-28] MEDS: INSULIN GLARGINE UD 100 UNITS/ML SYR SUBCUT SCH (11:22)
[2020-12-28] MEDS: SODIUM CHLORIDE 0.9% 1,000 ML IV SCH (17:20)
[2020-12-28] MEDS ORDERED: KCL 20MEQ/100ML PREMIX 100 ML IV NR (20:00)
[2020-12-28] MEDS ORDERED: KCL 20MEQ/100ML PREMIX 100 ML IV SCH (23:30)
[2020-12-29] VITALS (94 sets, daily range): BP systolic 93–174; BP diastolic 27–97
[2020-12-29] MEDS: INSULIN LISPRO 100 UNITS/ML SUBCUT SCH ×4 (01:09→19:02)
[2020-12-29] MEDS: IPRATROPIUM/ALBUTEROL 0.5-3(2.5)MG/3ML NEB HHN SCH ×4 (01:55→21:22)
[2020-12-29] MEDS: PHENYTOIN SODIUM 100MG/2ML VIAL IV SCH ×3 (05:01→21:59)
[2020-12-29] MEDS: NITROGLYCERIN OINT 1GM/INCH UDPKT TD SCH ×3 (05:22→21:59)
[2020-12-29] MEDS: HYDRALAZINE HCL 25MG TABLET PO SCH ×4 (05:23→22:00)
[2020-12-29] MEDS: BLOOD SUGAR DIAGNOSTIC STRIP TEST SCH ×4 (06:00→18:30)
[2020-12-29] MEDS: SODIUM CHLORIDE 0.9% 1,000 ML IV SCH ×2 (08:07→21:04)
[2020-12-29] MEDS: PANTOPRAZOLE SODIUM 40 MG/VIAL IV SCH (08:08)
[2020-12-29] MEDS: METOPROLOL TARTRATE 25MG TABLET PO SCH ×2 (08:08→21:05)
[2020-12-29] MEDS: DOCUSATE SODIUM SUGAR FREE 100MG/10ML UDC NG SCH (08:08)
[2020-12-29] MEDS: LEVETIRACETAM 2,000 MG in SODIUM CHLORIDE 0.9% 250 ML IV SCH ×2 (08:08→22:16)
[2020-12-29] MEDS: AMLODIPINE 10MG TABLET PO SCH (08:09)
[2020-12-29] MEDS: MINOXIDIL 2.5MG TABLET PO SCH ×2 (08:09→21:04)
[2020-12-29 08:20] LABS: HEMATOCRIT. 23.4 % (36.0-48.0); HEMOGLOBIN. 7.6 g/dL (12.0-16.0); MEAN CORPUSCULAR HEMOGLOBIN 26.3 pg (28.0-32.0); MEAN PLATELET VOLUME 6.4 fl (7.4-10.4); PLATELET 416 x1000/uL (130-400); RED BLOOD CELL COUNT 2.89 mill/uL (4.2-5.4); RED CELL DISTRIBUTION WIDTH 14.7 % (11.6-14.6)
[2020-12-29 08:32] LABS: CHLORIDE 107 mEq/L (98-107)
[2020-12-29] MEDS: INSULIN GLARGINE UD 100 UNITS/ML SYR SUBCUT SCH (09:47)
[2020-12-29 10:52] LABS: PLATELET ESTIMATE SLIGHTLY INCREASED
[2020-12-29] MEDS ORDERED: POTASSIUM CHLORIDE 20MEQ TABLET SR PO NR (11:15)
[2020-12-29] MEDS: NICARDIPINE 100 MG in SODIUM CHLORIDE 0.9% 60 ML IV PRN (15:21)
[2020-12-29] MEDS ORDERED: MEPERIDINE HCL/PF 25MG/ML CPJ IM PRN (18:08)
[2020-12-29] MEDS ORDERED: LORAZEPAM 0.5MG TABLET PO PRN (18:11)
[2020-12-29] MEDS: ACETAMINOPHEN 325MG TABLET PO PRN (19:02)
[2020-12-30] VITALS (67 sets, daily range): BP systolic 68–165; BP diastolic 38–112
[2020-12-30] MEDS: BLOOD SUGAR DIAGNOSTIC STRIP TEST SCH ×4 (00:40→18:07)
[2020-12-30] MEDS: IPRATROPIUM/ALBUTEROL 0.5-3(2.5)MG/3ML NEB HHN SCH ×5 (00:51→20:05)
[2020-12-30] MEDS: INSULIN LISPRO 100 UNITS/ML SUBCUT SCH ×4 (00:51→18:08)
[2020-12-30] MEDS: HYDRALAZINE HCL 25MG TABLET PO SCH ×5 (00:59→22:00)
[2020-12-30] MEDS: ACETAMINOPHEN 325MG TABLET PO PRN ×2 (05:01→14:42)
[2020-12-30] MEDS: NICARDIPINE 100 MG in SODIUM CHLORIDE 0.9% 60 ML IV PRN (05:42)
[2020-12-30] MEDS: PHENYTOIN SODIUM 100MG/2ML VIAL IV SCH ×3 (06:02→22:53)
[2020-12-30] MEDS: NITROGLYCERIN OINT 1GM/INCH UDPKT TD SCH ×2 (06:04→14:00)
[2020-12-30] MEDS: LEVETIRACETAM 2,000 MG in SODIUM CHLORIDE 0.9% 250 ML IV SCH ×2 (08:50→22:53)
[2020-12-30] MEDS: DOCUSATE SODIUM SUGAR FREE 100MG/10ML UDC NG SCH (08:50)
[2020-12-30] MEDS: PANTOPRAZOLE SODIUM 40 MG/VIAL IV SCH (08:50)
[2020-12-30] MEDS: AMLODIPINE 10MG TABLET PO SCH (08:51)
[2020-12-30] MEDS: CLONIDINE HCL 0.3MG/24HR PATCH TD SCH (08:51)
[2020-12-30] MEDS: METOPROLOL TARTRATE 25MG TABLET PO SCH ×2 (08:51→21:00)
[2020-12-30] MEDS: MINOXIDIL 2.5MG TABLET PO SCH ×2 (09:00→21:00)
[2020-12-30 10:58] LABS: BASOPHILS % 0.6 % (0.0-2.0); EOSINOPHILS % 2.7 % (0.0-5.0); HEMATOCRIT. 21.5 % (36.0-48.0); HEMOGLOBIN. 7.1 g/dL (12.0-16.0); LYMPHOCYTES % 11.4 % (20.0-50.0); MEAN CORPUSCULAR HEMOGLOBIN 26.4 pg (28.0-32.0); MEAN CORPUSCULAR VOLUME 80.2 fL (81.0-99.0); MEAN PLATELET VOLUME 6.3 fl (7.4-10.4); MONOCYTES % 7.5 % (2.0-8.0); NEUTROPHILS % 77.8 % (40.0-76.0); PLATELET 427 x1000/uL (130-400); RED BLOOD CELL COUNT 2.69 mill/uL (4.2-5.4); RED CELL DISTRIBUTION WIDTH 14.9 % (11.6-14.6)
[2020-12-30 11:10] LABS: CHLORIDE 106 mEq/L (98-107)
[2020-12-30] MEDS: INSULIN GLARGINE UD 100 UNITS/ML SYR SUBCUT SCH (12:43)
[2020-12-30] MEDS: SODIUM CHLORIDE 0.9% 1,000 ML IV SCH (12:44)
[2020-12-30] MEDS: PHENOL/SODIUM PHENOLATE 1.4% SRPAY 177ML MM PRN (14:42)
[2020-12-31] VITALS (67 sets, daily range): BP systolic 104–187; BP diastolic 36–134
[2020-12-31] MEDS: INSULIN LISPRO 100 UNITS/ML SUBCUT SCH ×5 (00:45→23:49)
[2020-12-31] MEDS: IPRATROPIUM/ALBUTEROL 0.5-3(2.5)MG/3ML NEB HHN SCH ×4 (01:26→20:12)
[2020-12-31 05:45] LABS: HEMATOCRIT. 25.7 % (36.0-48.0); HEMOGLOBIN. 8.5 g/dL (12.0-16.0); MEAN CORPUSCULAR HEMOGLOBIN 26.8 pg (28.0-32.0); MEAN CORPUSCULAR VOLUME 80.9 fL (81.0-99.0); MEAN PLATELET VOLUME 6.2 fl (7.4-10.4); PLATELET 432 x1000/uL (130-400); RED BLOOD CELL COUNT 3.18 mill/uL (4.2-5.4); RED CELL DISTRIBUTION WIDTH 15.1 % (11.6-14.6)
[2020-12-31 05:56] LABS: CHLORIDE 106 mEq/L (98-107)
[2020-12-31] MEDS: BLOOD SUGAR DIAGNOSTIC STRIP TEST SCH ×4 (06:30→23:44)
[2020-12-31] MEDS: SODIUM CHLORIDE 0.9% 1,000 ML IV SCH ×2 (06:34→12:20)
[2020-12-31] MEDS: PHENYTOIN SODIUM 100MG/2ML VIAL IV SCH ×3 (08:19→22:13)
[2020-12-31] MEDS: NICARDIPINE 100 MG in SODIUM CHLORIDE 0.9% 60 ML IV PRN (08:20)
[2020-12-31] MEDS: LEVETIRACETAM 2,000 MG in SODIUM CHLORIDE 0.9% 250 ML IV SCH ×2 (09:40→20:46)
[2020-12-31] MEDS: DOCUSATE SODIUM SUGAR FREE 100MG/10ML UDC NG SCH (09:40)
[2020-12-31] MEDS: AMLODIPINE 10MG TABLET PO SCH (09:41)
[2020-12-31] MEDS: METOPROLOL TARTRATE 50MG TABLET PO SCH ×2 (09:41→20:54)
[2020-12-31] MEDS: MINOXIDIL 2.5MG TABLET PO SCH ×2 (09:41→20:53)
[2020-12-31] MEDS: PHENOL/SODIUM PHENOLATE 1.4% SRPAY 177ML MM PRN (09:42)
[2020-12-31] MEDS: PANTOPRAZOLE SODIUM 40 MG/VIAL IV SCH (09:42)
[2020-12-31] MEDS: INSULIN GLARGINE UD 100 UNITS/ML SYR SUBCUT SCH (09:44)
[2020-12-31] MEDS ORDERED: POTASSIUM CHLORIDE INJ 40 MEQ in DEXT 5% WATER 250 ML IV NR (10:00)
[2020-12-31 11:27] LABS: PLATELET ESTIMATE INCREASED
[2020-12-31] MEDS ORDERED: BARIUM SULFATE 176 GM SUSP.RECON ONE (13:33)
[2020-12-31] MEDS: HYDRALAZINE HCL 25MG TABLET PO SCH ×2 (14:00→22:12)
[2021-01-01] VITALS (50 sets, daily range): BP systolic 85–178; BP diastolic 27–117
[2021-01-01] MEDS: SODIUM CHLORIDE 0.9% 1,000 ML IV SCH ×2 (02:00→08:55)
[2021-01-01] MEDS: IPRATROPIUM/ALBUTEROL 0.5-3(2.5)MG/3ML NEB HHN SCH ×3 (02:03→21:15)
[2021-01-01] MEDS: HYDRALAZINE HCL 25MG TABLET PO SCH ×3 (05:43→22:09)
[2021-01-01] MEDS: PHENYTOIN SODIUM 100MG/2ML VIAL IV SCH ×3 (05:43→22:09)
[2021-01-01] MEDS: INSULIN LISPRO 100 UNITS/ML SUBCUT SCH ×4 (06:00→21:00)
[2021-01-01] MEDS: NITROGLYCERIN OINT 1GM/INCH UDPKT TD SCH ×3 (06:25→22:10)
[2021-01-01] MEDS: BLOOD SUGAR DIAGNOSTIC STRIP TEST SCH ×4 (06:26→21:00)
[2021-01-01] MEDS: DOCUSATE SODIUM SUGAR FREE 100MG/10ML UDC NG SCH (08:56)
[2021-01-01] MEDS: AMLODIPINE 10MG TABLET PO SCH (08:57)
[2021-01-01] MEDS: MINOXIDIL 2.5MG TABLET PO SCH ×2 (08:57→21:20)
[2021-01-01] MEDS: PANTOPRAZOLE SODIUM 40 MG/VIAL IV SCH (08:57)
[2021-01-01] MEDS: MULTIVITAMINS,THER W-MINERALS TABLET PO SCH (08:57)
[2021-01-01] MEDS: METOPROLOL TARTRATE 50MG TABLET PO SCH ×2 (08:58→21:20)
[2021-01-01] MEDS: LEVETIRACETAM 2,000 MG in SODIUM CHLORIDE 0.9% 250 ML IV SCH (08:59)
[2021-01-01 09:00] LABS: BASOPHILS % 0.7 % (0.0-2.0); HEMATOCRIT. 27.9 % (36.0-48.0); HEMOGLOBIN. 9.2 g/dL (12.0-16.0); LYMPHOCYTES % 10.4 % (20.0-50.0); MEAN CORPUSCULAR VOLUME 81.7 fL (81.0-99.0); MEAN PLATELET VOLUME 6.2 fl (7.4-10.4); NEUTROPHILS % 77.9 % (40.0-76.0); PLATELET 425 x1000/uL (130-400); RED BLOOD CELL COUNT 3.42 mill/uL (4.2-5.4); RED CELL DISTRIBUTION WIDTH 15.3 % (11.6-14.6)
[2021-01-01] MEDS: INSULIN GLARGINE UD 100 UNITS/ML SYR SUBCUT SCH (09:07)
[2021-01-01 09:23] LABS: CHLORIDE 107 mEq/L (98-107)
[2021-01-01 10:41] LABS: PHOSPHORUS 2.9 mg/dL (2.5-4.9)
[2021-01-01] MEDS ORDERED: POTASSIUM CHLORIDE INJ 40 MEQ in DEXT 5% WATER 250 ML IV NR (12:30)
[2021-01-01] MEDS ORDERED: GUAIFENESIN-DM 200MG-20MG/10ML UDC PO PRN (13:15)
[2021-01-01] MEDS: ACETAMINOPHEN 325MG TABLET PO PRN (21:19)
[2021-01-02] VITALS (12 sets, daily range): BP systolic 111–160; BP diastolic 49–98
[2021-01-02] MEDS: LEVETIRACETAM 2,000 MG in SODIUM CHLORIDE 0.9% 250 ML IV SCH ×3 (00:55→21:57)
[2021-01-02] MEDS: IPRATROPIUM/ALBUTEROL 0.5-3(2.5)MG/3ML NEB HHN SCH ×4 (02:40→21:32)
[2021-01-02] MEDS: PHENYTOIN SODIUM 100MG/2ML VIAL IV SCH ×3 (05:44→22:46)
[2021-01-02] MEDS: NITROGLYCERIN OINT 1GM/INCH UDPKT TD SCH ×3 (05:44→22:46)
[2021-01-02] MEDS: HYDRALAZINE HCL 25MG TABLET PO SCH ×3 (05:45→22:46)
[2021-01-02] MEDS: BLOOD SUGAR DIAGNOSTIC STRIP TEST SCH ×4 (07:30→21:15)
[2021-01-02] MEDS: INSULIN LISPRO 100 UNITS/ML SUBCUT SCH ×3 (07:30→21:59)
[2021-01-02] MEDS: MULTIVITAMINS,THER W-MINERALS TABLET PO SCH (08:28)
[2021-01-02] MEDS: ACETAMINOPHEN 325MG TABLET PO PRN (08:28)
[2021-01-02] MEDS: MINOXIDIL 2.5MG TABLET PO SCH ×2 (08:29→21:12)
[2021-01-02] MEDS: AMLODIPINE 10MG TABLET PO SCH (08:29)
[2021-01-02] MEDS: DOCUSATE SODIUM SUGAR FREE 100MG/10ML UDC NG SCH (08:30)
[2021-01-02] MEDS: METOPROLOL TARTRATE 50MG TABLET PO SCH ×2 (08:41→21:11)
[2021-01-02] MEDS ORDERED: METOPROLOL TARTRATE 25MG TABLET PO NR (09:45)
[2021-01-02] MEDS: PANTOPRAZOLE SODIUM 40 MG/VIAL IV SCH (09:51)
[2021-01-02] MEDS: INSULIN GLARGINE UD 100 UNITS/ML SYR SUBCUT SCH (11:42)
[2021-01-03] VITALS (12 sets, daily range): BP systolic 103–148; BP diastolic 41–105
[2021-01-03] MEDS: IPRATROPIUM/ALBUTEROL 0.5-3(2.5)MG/3ML NEB HHN SCH ×4 (02:42→20:57)
[2021-01-03] MEDS: PHENYTOIN SODIUM 100MG/2ML VIAL IV SCH ×3 (05:14→21:56)
[2021-01-03] MEDS: HYDRALAZINE HCL 25MG TABLET PO SCH ×3 (05:14→21:56)
[2021-01-03] MEDS: NITROGLYCERIN OINT 1GM/INCH UDPKT TD SCH ×3 (05:14→21:55)
[2021-01-03] MEDS: INSULIN LISPRO 100 UNITS/ML SUBCUT SCH ×4 (07:30→21:00)
[2021-01-03] MEDS: BLOOD SUGAR DIAGNOSTIC STRIP TEST SCH ×4 (08:19→21:56)
[2021-01-03] MEDS: METOPROLOL TARTRATE 50MG TABLET PO SCH ×2 (09:00→21:55)
[2021-01-03] MEDS: AMLODIPINE 10MG TABLET PO SCH (09:00)
[2021-01-03] MEDS: PANTOPRAZOLE SODIUM 40 MG/VIAL IV SCH (09:00)
[2021-01-03] MEDS: MINOXIDIL 2.5MG TABLET PO SCH ×2 (09:00→21:56)
[2021-01-03] MEDS: MULTIVITAMINS,THER W-MINERALS TABLET PO SCH (09:00)
[2021-01-03] MEDS: DOCUSATE SODIUM SUGAR FREE 100MG/10ML UDC NG SCH (09:00)
[2021-01-03] MEDS: LEVETIRACETAM 2,000 MG in SODIUM CHLORIDE 0.9% 250 ML IV SCH ×2 (09:00→21:58)
[2021-01-03] MEDS: INSULIN GLARGINE UD 100 UNITS/ML SYR SUBCUT SCH (12:49)
[2021-01-04] VITALS (15 sets, daily range): BP systolic 94–152; BP diastolic 42–90
[2021-01-04] MEDS: IPRATROPIUM/ALBUTEROL 0.5-3(2.5)MG/3ML NEB HHN SCH ×3 (02:30→13:55)
[2021-01-04] MEDS: PHENYTOIN SODIUM 100MG/2ML VIAL IV SCH ×2 (06:48→13:37)
[2021-01-04] MEDS: NITROGLYCERIN OINT 1GM/INCH UDPKT TD SCH ×2 (06:48→13:39)
[2021-01-04] MEDS: HYDRALAZINE HCL 25MG TABLET PO SCH ×2 (06:48→13:50)
[2021-01-04] MEDS: BLOOD SUGAR DIAGNOSTIC STRIP TEST SCH ×3 (08:20→17:32)
[2021-01-04] MEDS: PANTOPRAZOLE SODIUM 40 MG/VIAL IV SCH (08:21)
[2021-01-04] MEDS: AMLODIPINE 10MG TABLET PO SCH (08:22)
[2021-01-04] MEDS: METOPROLOL TARTRATE 50MG TABLET PO SCH (08:22)
[2021-01-04] MEDS: MULTIVITAMINS,THER W-MINERALS TABLET PO SCH (08:23)
[2021-01-04] MEDS: DOCUSATE SODIUM SUGAR FREE 100MG/10ML UDC NG SCH (08:23)
[2021-01-04] MEDS: MINOXIDIL 2.5MG TABLET PO SCH (08:23)
[2021-01-04] MEDS: INSULIN LISPRO 100 UNITS/ML SUBCUT SCH ×3 (08:25→17:40)
[2021-01-04] MEDS: LEVETIRACETAM 2,000 MG in SODIUM CHLORIDE 0.9% 250 ML IV SCH (08:26)
[2021-01-04] MEDS: ACETAMINOPHEN 325MG TABLET PO PRN ×2 (08:30→10:00)
[2021-01-04] MEDS ORDERED: METOPROLOL TARTRATE 100MG TABLET PO SCH ×2 (09:00→21:00)
[2021-01-04] MEDS: INSULIN GLARGINE UD 100 UNITS/ML SYR SUBCUT SCH (10:00)
[2021-01-04] MEDS: HYDRALAZINE 20MG/ML VIAL IV PRN ×2 (13:39→13:50)
[2021-01-04] MEDS ORDERED: LEVETIRACETAM 500MG TABLET PO SCH (21:00)
[2021-01-04] MEDS ORDERED: PHENYTOIN SODIUM EXTENDED 100MG CAPSULE PO SCH (22:00)
[2021-01-05] MEDS ORDERED: PANTOPRAZOLE 40MG DR TABLET PO SCH (07:30)
== END 2021-01-04 19:50 | DRG 853 ==
LOC: ER 17:15 → MICUSO 19:14 → SUPCPDRO 20:07 → 5EST 12-17 05:15 → MICUNO 12-17 15:00 → 5EST 01-01 15:47
PROVIDERS: ADMIT Internal Medicine; ATTEND Internal Medicine
PROC: 30233R1 Transfusion of Nonautologous Platelets into Peripheral Vein, Percutaneous Approach (ICD-10-PCS; 2020-12-16)
PROC: 009430Z Drainage of Intracranial Subdural Space with Drainage Device, Percutaneous Approach (ICD-10-PCS; principal; 2020-12-17)
PROC: 00C40ZZ Extirpation of Matter from Intracranial Subdural Space, Open Approach (ICD-10-PCS; 2020-12-17)
PROC: 00H632Z Insertion of Monitoring Device into Cerebral Ventricle, Percutaneous Approach (ICD-10-PCS; 2020-12-17)
PROC: 0NU00JZ Supplement Skull with Synthetic Substitute, Open Approach (ICD-10-PCS; 2020-12-17)
PROC: 4A103BD Monitoring of Intracranial Pressure, Percutaneous Approach (ICD-10-PCS; 2020-12-17)
PROC: 02HV33Z Insertion of Infusion Device into Superior Vena Cava, Percutaneous Approach (ICD-10-PCS; 2020-12-18)
PROC: B548ZZA Ultrasonography of Superior Vena Cava, Guidance (ICD-10-PCS; 2020-12-18)
PROC: 5A1955Z Respiratory Ventilation, Greater than 96 Consecutive Hours (ICD-10-PCS; 2020-12-20)
PROC: 0BH17EZ Insertion of Endotracheal Airway into Trachea, Via Natural or Artificial Opening (ICD-10-PCS; 2020-12-20)
PROC: 30233N1 Transfusion of Nonautologous Red Blood Cells into Peripheral Vein, Percutaneous Approach (ICD-10-PCS; 2020-12-30)
DX: A41.9 Sepsis, unspecified organism (principal); G92 Toxic encephalopathy; I62.01 Nontraumatic acute subdural hemorrhage; J18.9 Pneumonia, unspecified organism; J96.01 Acute respiratory failure with hypoxia; E44.1 Mild protein-calorie malnutrition; N39.0 Urinary tract infection, site not specified; N17.9 Acute kidney failure, unspecified; R47.01 Aphasia; G81.91 Hemiplegia, unspecified affecting right dominant side; R65.20 Severe sepsis without septic shock; E11.65 Type 2 diabetes mellitus with hyperglycemia; I10 Essential (primary) hypertension; D47.3 Essential (hemorrhagic) thrombocythemia; L89.156 Pressure-induced deep tissue damage of sacral region; R26.9 Unspecified abnormalities of gait and mobility; D63.8 Anemia in other chronic diseases classified elsewhere; E78.00 Pure hypercholesterolemia, unspecified; Z20.822 Contact with and (suspected) exposure to COVID-19; G40.909 Epilepsy, unspecified, not intractable, without status epilepticus; R13.10 Dysphagia, unspecified; Z79.4 Long term (current) use of insulin; Z86.73 Personal history of transient ischemic attack (TIA), and cerebral infarction without residual deficits; Z90.49 Acquired absence of other specified parts of digestive tract; Z88.2 Allergy status to sulfonamides; Z68.33 Body mass index [BMI] 33.0-33.9, adult
CPT/HCPCS: 31500; 36415; 36600; 70496; 70551; 71045; 74230; 76937; 80048; 80053; 80061; 80185; 80305; 80320; 81003; 82040; 82140; 82375; 82550; 82553; 82607; 82746; 82805; 82962; 83036; 83540; 83550; 83605; 83721; 83735; 84100; 84134; 84145; 84478; 84484; 85025; 85027; 86850; 86900; 86920; 87070; 87075; 87426; 88305; 92610; 92611; 93005; 93970; 94003; 94640; 97110; 97112; 97162; 97166; 97530; 97535; 99291; A6261; C1713; C1725; C9113; J0330; J0360; J0690; J0696; J1100; J1165; J1815; J1953; J2250; J2270; J2405; J2704; J2710; J3010; J3480; J3490; J7030; J7040; J7050; J7060; J7120; P9016; P9034; Q9967; A4315; G0480

== ENCOUNTER 2022-02-25 14:50 | Emergency (ER) | payer MEDICARE, MEDICAID ==
[~2022-02-25] VITALS: Ht 162.6 cm; Wt 77.0 kg
[~2022-02-25 14:50] MED LIST: ACET325T52 PO; AMLO5TAB88 PO; ATOR20TA65 PO; BLOO-1113 XX; ESCI5TAB16 PO; LEVE10006 PO; METF-415 PO; TRAZ-251 PO
[2022-02-25 15:39] LABS: BASOPHILS % 0.5 % (0.0-2.0); EOSINOPHILS % 3.7 % (0.0-5.0); HEMATOCRIT. 37.2 % (36.0-48.0); HEMOGLOBIN. 12.4 g/dL (12.0-16.0); LYMPHOCYTES % 22.4 % (20.0-50.0); MEAN CORPUSCULAR HEMOGLOBIN 28.1 pg (28.0-32.0); MEAN CORPUSCULAR VOLUME 84.2 fL (81.0-99.0); MEAN PLATELET VOLUME 6.8 fl (7.4-10.4); MONOCYTES % 11.7 % (2.0-8.0); NEUTROPHILS % 61.7 % (40.0-76.0); PLATELET 386 x1000/uL (130-400); RED BLOOD CELL COUNT 4.42 mill/uL (4.2-5.4); RED CELL DISTRIBUTION WIDTH 12.8 % (11.6-14.6)
[2022-02-25 16:05] LABS: CHLORIDE 105 mEq/L (98-107)
[2022-02-25 16:14] LABS: ETHANOL BLOOD < 10 mg/dL
[2022-02-25 18:29] LABS: CLARITY URINE CLEAR (CLEAR); COLOR URINE YELLOW (YELLOW); KETONES URINE NEGATIVE (NEGATIVE); LEUKOCYTE ESTERASE URINE TRACE (NEGATIVE); NITRITE URINE NEGATIVE (NEGATIVE); OCCULT BLOOD URINE NEGATIVE (NEGATIVE); PROTEIN URINE NEGATIVE (NEGATIVE); SPECIFIC GRAVITY URINE 1.012 (1.005-1.030); UROBILINOGEN URINE 0.2 E.U./dL (0.2-1.0)
[2022-02-25 18:43] LABS: *AMPHETAMINES SCREEN URINE NEGATIVE (NEGATIVE); *BARBITURATES SCREEN URINE NEGATIVE (NEGATIVE); *BENZODIAZEPINES SCREEN URINE NEGATIVE (NEGATIVE); *COCAINE SCREEN URINE NEGATIVE (NEGATIVE); CANNABINOID URINE SCREEN NEGATIVE (NEGATIVE); METHADONE URINE SCREEN NEGATIVE (NEGATIVE); OPIATES URINE SCREEN NEGATIVE (NEGATIVE); PHENCYCLIDINE URINE SCREEN NEGATIVE (NEGATIVE)
[2022-02-26 02:12] VITALS: BP 149/83
== END 2022-02-26 02:23 | disposition home or self-care (01) ==
LOC: ER 14:50
DX: R41.82 Altered mental status, unspecified (principal); I49.8 Other specified cardiac arrhythmias; D64.9 Anemia, unspecified; F32.9 Major depressive disorder, single episode, unspecified; E11.9 Type 2 diabetes mellitus without complications; I10 Essential (primary) hypertension; I69.351 Hemiplegia and hemiparesis following cerebral infarction affecting right dominant side; Z88.2 Allergy status to sulfonamides; Z93.1 Gastrostomy status; Z87.440 Personal history of urinary (tract) infections
CPT/HCPCS: 36415; 80053; 80305; 80320; 81003; 84484; 85025; 93005; 99285; G0480